=== PATIENT | male | born 1965 | race Caucasian/White ===

== ENCOUNTER 2023-08-22 22:14 | Emergency (ER) | payer OTHER, SELFPAY ==
[2023-08-22 22:24] VITALS: BP 104/62
--- NOTE | 2023-08-23 00:47 | ED.GENMED ---
History of Present Illness
<HOLLY Ball - Last Filed: 08/23/23 03:03>
General
Chief Complaint: Back Pain
Source: patient
Exam Limitations: none
Time Seen by Provider: 08/23/23 00:24
Nursing documentation reviewed up to this point in time: agreed with
Travel History
Have you had any contact with someone who has COVID-19?: No
Do you have any symptoms of coronavirus? Fever > 100 degrees, chills, cough, shortness of breath, sore throat, loss of taste or smell, muscle aches, or headache?: No
History of Present Illness
History of Present Illness:
patient is a 57 y/o male with chronic back pain presenting for worsening back pain x 1 week. Patient has a history chronic lower back pain that is managed by his pain management doctor. Patient has a history of multiple spinal surgeries due to back
pain. Patient admits that his lower back pain normally consists of radiculopathy that extends down the right leg predominantly. Patient states he has chronic tingling down his right lower extremity as well. Patient admits that he has been receiving
epidural injections for his pain with his last injection being July 13. Patient admits the epidurals have stopped helping his pain and he is now taking baclofen. Patient has an appointment with pain management tomorrow. Patient admits to a
fall 1 week ago after rolling his ankle and states he 'tensed up' which has caused his back pain to worsen and he can 'feel his disc bulging.' patient is in 9/10 pain. Patient denies alcohol or smoking in the last 48 hrs.
Past History
<HOLLY Ball - Last Filed: 08/23/23 03:03>
Past History
ED Past Medical History: Other (PNeumonia with sepsis) and Other (Morbid obesity, Sleep apnea, previous L1 vertebral surgery, previous cervical laminectomy); Negative Asthma, HTN, Hypercholesterolemia or NIDDM
ED Past Surgical History: Orthopedic
Social History
Tobacco: Non-smoker
Alcohol: None
Drug: None
Personal: Single
Living: alone
Employment: Employed
Family History
Family History: Other (Noncontributory)
Review of Systems
<HOLLY Ball - Last Filed: 08/23/23 03:03>
Review of Systems
Constitutional: Reports no symptoms
EENT: Reports no symptoms
Respiratory: Reports no symptoms
Cardiac: Reports no symptoms
ABD/GI: Reports no symptoms
: Reports no symptoms
Musculoskeletal: Reports muscle pain, muscle stiffness, neck pain and back pain
Skin: Reports no symptoms
Neurological: Reports weakness and numbness
Endocrine: Reports no symptoms
Hematologic/Lymphatic: Reports no symptoms
Psychiatric: Reports no symptoms
Phy Exam
<HOLLY Ball - Last Filed: 08/23/23 03:03>
Physical Exam
Physical Exam:
pain to palpation of lumbar spine
Neurological Exam
Neurological Exam: sensory deficit (right lower leg )
Musculoskeletal Exam
Musculoskeletal Exam: neck pain, back pain and back tenderness
Course
<HOLLY Ball - Last Filed: 08/23/23 03:03>
Orders/Labs/Results
Orders:
Orders
08/23/23 00:50
Urinalysis Reflex To Culture Urgent
Date Specimen was Collected: 08/23/23
Time Specimen was Collected: 00:48
08/23/23 01:06
Tramadol HCl [Ultram] 50 mg PO NOW STA
Vital Signs
Initial and Last Documented VS:
Initial Vital Signs
Temp Pulse Resp BP Pulse Ox
98.9 F 70 18 104/62 93
08/22/23 22:24 08/22/23 22:24 08/22/23 22:24 08/22/23 22:24 08/22/23 22:24
Last Documented Vital Signs
Temp Pulse Resp BP Pulse Ox
98.9 F 76 20 104/62 98
08/22/23 22:24 08/23/23 01:15 08/23/23 01:15 08/22/23 22:24 08/23/23 01:15
<Anup Fitzgerald DO - Last Filed: 08/23/23 01:20>
Orders/Labs/Results
Orders:
Orders
08/23/23 00:50
Urinalysis Reflex To Culture Urgent
Date Specimen was Collected: 08/23/23
Time Specimen was Collected: 00:48
08/23/23 01:06
Tramadol HCl [Ultram] 50 mg PO NOW STA
Vital Signs
Initial and Last Documented VS:
Initial Vital Signs
Temp Pulse Resp BP Pulse Ox
98.9 F 70 18 104/62 93
08/22/23 22:24 08/22/23 22:24 08/22/23 22:24 08/22/23 22:24 08/22/23 22:24
Last Documented Vital Signs
Temp Pulse Resp BP Pulse Ox
98.9 F 76 20 104/62 98
08/22/23 22:24 08/23/23 01:15 08/23/23 01:15 08/22/23 22:24 08/23/23 01:15
<HOLLY Ball - Last Filed: 08/23/23 03:03>
MDM/Problems Addressed
Differential Diagnosis Includes:
sciatica
disc herniation
spinal stenosis
MDM/Problems Addressed:
back pain
<HOLYL Ball - Last Filed: 08/23/23 03:03>
*Critical Care Note
Total Time (30-74mins, 75-104mins- exclusive of procedures): Not Applicable
ED Attending Note
Bensonlt;HOLLY Ball - Last Filed: 08/23/23 03:03>
-
Portions of this chart may have been created with voice recognition software.� Occasional wrong word or��sound alike� substitutions may have occurred due to the inherent limitations of voice recognition software.
<Anup Fitzgerald DO - Last Filed: 08/23/23 01:20>
ED Attending Note
Patient seen and examined by attending physician: Yes
I performed the substantive portion of visit, reviewed & personally made and approve the management plan that is documented in note by myself or BIB.: Yes
ED Attending Note:
I have seen and evaluated the patient with a [id number] encounter. I have spoken to the advance practicer provider and involved in the medical history, the physical exam, medical decision making.
Evaluation and management service: agree unless noted differently below.
Results interpretation: agree unless noted differently below.
Focused HPI: 57-year-old male presenting with acute on chronic back pain. Patient had a recent fall and states this aggravated his back. Patient has longstanding history of back pain. Patient acknowledges that he does not like narcotics based on
the side effects. He follows up with pain management next has appointment tomorrow. Patient states he has been unable to sleep. He states there is mild tingling going down both legs but that is normal. He denies trouble urinating or loss of
bowel movements.
Physical exam: Mildly uncomfortable. No midline tenderness. Ambulating without difficulty. Sensation grossly intact to both legs. Distal pulses intact.
Medical Decision Making: Will give short prescription for tramadol and metaxalone. Patient feels comfortable with this plan. He will follow-up with his pain management tomorrow.
Discharge Plan
Departure
Patient Disposition: Home (Routine Discharge)
Date of Disposition: 08/23/23
Time of Disposition: 01:07
Patient with high blood pressure during this ER visit?: No
Discharge Problem:
Back pain
Instructions: Low Back Pain (DC)
Prescriptions:
New
tramadol 50 mg tablet
50 mg PO BID PRN (Reason: pain) Qty: 14 0RF
metaxalone 800 mg tablet
800 mg PO TID PRN (Reason: muscle pain) Qty: 14 0RF
No Action
baclofen 5 mg Tablet
5 mg PO DAILY
Referrals:
Victor M Peters MD [Family Provider] -
Activity Restrictions/Additional Instructions:
Please return for any worsening symptoms.
You may return at any time if you have further concerns.
Please keep your pain management appointment tomorrow.
Thank you for choosing [facility].
Interventions
Interventions:
*Risk Screen - Suicide Last Done: 08/22/23 22:24
*General Assessment Last Done: 08/23/23 00:55
*Neglect/Abuse Screening Last Done: 08/22/23 22:24
ED- Fall Risk Assessment Last Done: 08/23/23 00:55
*ED COVID-19 Vaccine History Last Done: 08/23/23 00:55
*Nursing Disposition Last Done: 08/23/23 01:34
ED-Musculoskeletal Assessment Last Done: 08/23/23 00:55
Discharge Date and Time
Discharge Date/Time: 08/23/23 01:35
[2023-08-23 01:01] LABS: Urine Albumin Negative (Neg - Trace); Urine Bilirubin Negative (Negative); Urine Character Clear (Clear); Urine Color Yellow; Urine Glucose Negative (Negative); Urine Ketone Negative (Negative); Urine Leukocyte Negative (Negative); Urine Nitrite Negative (Negative); Urine Occult Blood Negative (Negative); Urine Urobilinogen Negative (Neg - 1+)
[2023-08-23] MEDS: ULTRAM 50 MG PO (01:13)
== END 2023-08-23 01:35 | disposition home or self-care (01) ==
LOC: EMR 22:14
PROVIDERS: EMERGENCY PHYSICIAN Student in an Organized Health Care Education/Training Program; FAMILY PHYSICIAN Family Medicine
DX: M54.9 Dorsalgia, unspecified (principal); G89.29 Other chronic pain; E66.01 Morbid (severe) obesity due to excess calories; G47.30 Sleep apnea, unspecified; I10 Essential (primary) hypertension
CPT/HCPCS: 99282; 81003

== ENCOUNTER 2024-01-03 20:18 | Emergency (ER) | payer SELFPAY ==
[2024-01-03 20:19] VITALS: BP 154/91
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
[2024-01-03] MEDS: DELTASONE 40 MG PO (22:39)
== END 2024-01-03 22:55 | disposition home or self-care (01) ==
LOC: EMR 20:18
PROVIDERS: EMERGENCY PHYSICIAN Emergency Medicine; FAMILY PHYSICIAN Family Medicine
DX: S13.4XXA Sprain of ligaments of cervical spine, initial encounter (principal); S33.5XXA Sprain of ligaments of lumbar spine, initial encounter; S60.221A Contusion of right hand, initial encounter; V43.52XA Car driver injured in collision with other type car in traffic accident, initial encounter; Y92.410 Unspecified street and highway as the place of occurrence of the external cause; E66.01 Morbid (severe) obesity due to excess calories; G47.30 Sleep apnea, unspecified
CPT/HCPCS: 99284; 72072; 72110; 72125; 73130

== ENCOUNTER 2024-03-16 15:04 | Emergency (ER) | payer OTHER, SELFPAY ==
[2024-03-16 15:17] VITALS: BP 148/88
--- NOTE | 2024-03-16 16:07 | ED.MUSCINJ ---
HPI-Injury
General
Chief Complaint: Musculo-Skeletal Complaint
Source: patient
Exam Limitations: none
Time Seen by Provider: 03/16/24 16:03
Nursing documentation reviewed up to this point in time: agreed with
History of Present Illness-Injury
Initial Injury comments:
58-year-old male was raking leaves at 1030 this morning when he tripped over the cord and fell onto his outstretched right hand. He presents with pain in the wrist and fourth and fifth metacarpals
Past History
Past History
ED Past Medical History: Other (Pneumonia with sepsis) and Other (Morbid obesity, Sleep apnea, previous L1 vertebral surgery, previous cervical laminectomy); Negative Asthma, HTN, Hypercholesterolemia or NIDDM
ED Past Surgical History: Orthopedic
Social History
Tobacco: Non-smoker
Alcohol: None
Drug: None
Personal: Single
Living: alone
Employment: Employed
Family History
Family History: Other (Noncontributory)
Review of Systems
Review of Systems
Allergies reviewed?: Yes
All Other Systems: ROS reviewed and negative except as documented in HPI and ROS
Musculoskeletal: Reports other (Pain right hand and wrist. 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
Phy Exam
Physical Exam
Physical Exam:
PHYSICAL EXAMINATION:
General: no apparent distress, not acutely ill
Neuro: alert and oriented.
Psychiatric: well kept. interactive and cooperative
Musculoskeletal: Tender to palpation over 4th and 5th metacarpals and carpal bones. No significant swelling. Distal N/V intact. Moves all fingers well. Moves with ease
Skin: Warm, pink.
Injury Course
Orders/Labs/Results
Orders:
Orders
03/16/24 15:19
Wrist, Right 3 Views [CR Wrist - Right Min 3 Views] Urgent
Comment:
Reason For Exam: injury
03/16/24 16:07
Harjinder Wrap Right-Treatment ONCE
03/16/24 16:33
Ibuprofen [Motrin] 600 mg PO NOW STA
03/16/24 16:59
Sling Right-Treatment ONCE
MDM/Problems Addressed
Differential Diagnosis Includes:
Sprain versus fracture of hand/wrist
MDM/Problems Addressed:
58-year-old male was raking leaves at 1030 this morning when he tripped over the cord and fell onto his outstretched right hand. He presents with pain in the wrist and fourth and fifth metacarpals
X-ray right wrist including full visualization of the third fourth and fifth metacarpals reveals no fracture.
Offered a universal splint but patient preferred to have an Harjinder wrap.
Harjinder wrap applied by this examiner. Cold compress applied. Pt requestedsling which was applied. Distal n/v intact afterwards
*Critical Care Note
Total Time (30-74mins, 75-104mins- exclusive of procedures): Not Applicable
ED Attending Note
-
Portions of this chart may have been created with voice recognition software.� Occasional wrong word or��sound alike� substitutions may have occurred due to the inherent limitations of voice recognition software.
Discharge Plan
Departure
Patient Disposition: Home (Routine Discharge)
Date of Disposition: 03/16/24
Time of Disposition: 16:11
Patient with high blood pressure during this ER visit?: No
Condition: Good
Discharge Problem:
Soft tissue injury of right hand, Soft tissue injury of right wrist
Instructions: Sprain (DC), Using Cold for Pain
Prescriptions:
No Action
baclofen 5 mg Tablet
5 mg PO DAILY
tramadol 50 mg tablet
50 mg PO BID PRN (Reason: pain) Qty: 14 0RF
metaxalone 800 mg tablet
800 mg PO TID PRN (Reason: muscle pain) Qty: 14 0RF
prednisone 10 mg Tablet
See Rx Instructions .ROUTE .COMPLEX Qty: 30 0RF
Rx Instructions:
Take By Mouth:
40 mg daily x3 days, 30 mg daily x3 days,
20 mg daily x3 days, 10 mg daily x3 days.
Referrals:
Your, Orthopedic doctor [Other] - As needed
Activity Restrictions/Additional Instructions:
As we discussed, I see nothing broken on your x-ray. Wear the Harjinder wrap as needed for comfort, support, swelling.
Tylenol or ibuprofen as needed for pain
See your orthopedic doctor if the areas are not a lot better in 1 week or not 100% better in 3 weeks.
Interventions
Interventions:
*Risk Screen - Suicide Last Done: 03/16/24 16:28
*Neglect/Abuse Screening Last Done: 03/16/24 16:28
*Nursing Disposition Last Done: 03/16/24 16:50
ED-Musculoskeletal Assessment Last Done: 03/16/24 16:28
Discharge Date and Time
Discharge Date/Time: 03/16/24 16:51
Print Language: AMHARIC
[2024-03-16 16:37] VITALS: BP 137/81
[2024-03-16] MEDS: MOTRIN 600 MG PO (16:43)
[2024-03-16 16:50] VITALS: BP 137/81
== END 2024-03-16 16:51 | disposition home or self-care (01) ==
LOC: EMR 15:04
PROVIDERS: EMERGENCY PHYSICIAN Emergency Medicine; FAMILY PHYSICIAN Family Medicine
DX: S69.91XA Unspecified injury of right wrist, hand and finger(s), initial encounter (principal); W01.0XXA Fall on same level from slipping, tripping and stumbling without subsequent striking against object, initial encounter; E66.01 Morbid (severe) obesity due to excess calories; G47.30 Sleep apnea, unspecified
CPT/HCPCS: 99283; 73110

== ENCOUNTER 2025-02-27 07:47 | Emergency (ER) | payer OTHER, SELFPAY ==
[2025-02-27 08:01] VITALS: BP 135/82
--- NOTE | 2025-02-27 08:27 | ED.GENMED ---
History of Present Illness
General
Chief Complaint: Cold/Flu/URI Symptoms
Source: patient
Time Seen by Provider: 02/27/25 08:15
History of Present Illness
History of Present Illness:
59-year-old male with past medical history of sleep apnea, BPH and diverticulosis presenting to the emergency department for evaluation of upper respiratory symptoms that been ongoing for the last 2 to 3 days, patient concerned for possible
pneumonia noting that when he gets upper respiratory infections he has had to be admitted multiple times in the past for IV antibiotics and respiratory difficulties. Patient notes that he does have a nebulizer machine at home but states it does not
work as well as the medication that we provided doing here so he did not use his nebulizer. He is denying any fevers although noting that he does feel flushed and hot at times. No known sick contacts, recent travel or recent antibiotics.
Currently denying any chest pain, palpitations, diaphoresis or exertional dyspnea, lower extremity edema, abdominal pain or GI symptoms.
Past History
Past History
ED Past Medical History: Other (Pneumonia with sepsis) and Other (Morbid obesity, Sleep apnea, previous L1 vertebral surgery, previous cervical laminectomy); Negative Asthma, HTN, Hypercholesterolemia or NIDDM
ED Past Surgical History: Orthopedic
Social History
Tobacco: Non-smoker
Alcohol: None
Drug: None
Personal:
Living: with family
Employment: Employed
Family History
Family History: Other (Noncontributory)
Review of Systems
Review of Systems
All Other Systems: ROS reviewed and negative except as documented in HPI and ROS
Phy Exam
Physical Exam
Physical Exam:
GENERAL: Alert , in no apparent distress, Overweight
HEAD: Normocephalic atraumatic
EYE: conjunctiva clear
NECK: Supple, no significant adenopathy.
ENT: o/p clr, mmm. No tonsillar edema or exudates, TMs clear and pearly bilateral
CARDIAC: Regular rate and rhythm
LUNGS: Clear breath sounds bilaterally, no acute respiratory distress, no wheezes/rales/rhonchi
NEUROLOGICAL: Alert and oriented
SKIN: Warm and dry, skin intact.
MUSCULOSKELETAL: well perfused.
PSYCH: Normal and appropriate interaction.
Scores
Heart Failure Risk
Heart Failure Risk Score: Not Applicable
Heart Score for Chest Pain Patients
STEMI patient?: Not applicable
Withdrawal Assessment of Alcohol
Withdrawal Assessment Completed?: Not applicable
Course
Orders/Labs/Results
Orders:
Orders
02/27/25 08:27
Electrocardiogram (*1) Urgent
Reason for Study: Shortness of Breath
EKG- Treatment ONCE
Ipratropium/Albuterol Sulfate [Duoneb] 3 ml INH R NOW ONE
CR Chest - 2 Views Urgent
Comment:
Reason For Exam: SOB
02/27/25 08:42
Complete Blood Count/With Diff Urgent
Comprehensive Metabolic Panel Urgent
NT-proBNP Urgent
Troponin I Urgent
02/27/25 08:54
COVID-19 Antigen Urgent
Source: Nasal Swab
02/27/25 10:27
CefTRIAXone [Rocephin] 1,000 mg IV NOW STA
Doxycycline [Vibramycin] 100 mg PO NOW STA
Abnormal Lab Results
02/27/25
08:42
MCHC 32.2 L g/dL
(33.0-37.0)
Abs Immat Gran (auto) 0.1 H 10^3/uL
(0-0.05)
Absolute Monos (auto) 0.8 H 10^3/uL
(0.1-0.6)
Immature Gran % 1.0 H %
(0-0.5)
Lymphocytes % 17.5 L %
(20.5-51.1)
Glucose 100 H mg/dl
(70-99)
02/27/25 08:42
02/27/25 08:42
Vital Signs
Initial and Last Documented VS:
Initial Vital Signs
Temp Pulse Resp BP Pulse Ox
98.1 F 73 18 135/82 94
02/27/25 08:01 02/27/25 08:01 02/27/25 08:01 02/27/25 08:01 02/27/25 08:01
Last Documented Vital Signs
Temp Pulse Resp BP Pulse Ox
98.1 F 65 26 135/82 96
02/27/25 08:01 02/27/25 10:00 02/27/25 10:00 02/27/25 08:01 02/27/25 10:00
MDM/Problems Addressed
Differential Diagnosis Includes:
Viral syndrome
COVID/flu
Pneumonia
Otitis media
Sinusitis
Pharyngitis
Strep throat
Undiagnosed COPD/asthma
MDM/Problems Addressed:
59-year-old male presenting to the ER for evaluation of cold like symptoms ongoing for the last few days, patient concern for possible development of pneumonia given past history. Currently hemodynamically stable and in no acute distress. Patient
is requesting a breathing event although no noted wheezing on exam. Will check labs, EKG and cardiac enzymes although my suspicion for any cardiac etiology is very low. Chest x-ray ordered. Disposition pending.
Chronic conditions affecting care: Other (Sleep apnea)
*Radiology
Radiology exam reviewed: preliminary read by ED provider (No acute infiltrates)
*Pulse Oximetry
SaO2: 94
Oxygen Mode of Delivery: Room air
Patient hypoxic: no
*EKG
Heart Rate: 64
Rate: normal
Rhythm: sinus
Como: normal axis
Ischemia: no ischemia
*Blood Bank Credit Clerk Interpretation
Rate: normal
Heart Rate: 71
Rhythm: sinus
*Critical Care Note
Total Time (30-74mins, 75-104mins- exclusive of procedures): Not Applicable
Data Reviewed
Review of Other/Old Records Reveals: Labs and Records
Patient Management
Escalation/DeEscalation of care consider admission/obs:
Patient's workup reassuring, no leukocytosis, no leftward shift, chemistry unremarkable, EKG nonischemic with normal troponin. COVID test negative. Patient's chest x-ray shows no signs of pneumonia. I reviewed these findings with patient.
Patient stating that given his history he would like to receive a dose of IV antibiotics. I did discuss with I felt his symptoms were more likely viral and that I would be happy to give him a oral prescription for antibiotics to take if patient was
still symptomatic over the next couple of days however patient was not happy with this plan. I discussed with the patient the potential side effects of IV and oral antibiotics and that if we were to give him the IV antibiotic here that he would
need to take the oral antibiotic but that I still suspect that his symptoms were more likely viral. Patient expressed understanding. I also reviewed with the patient the possibility of COPD as a diagnosis given the radiologist concern on his chest
x-ray and encouraged him to follow-up with his family doctor for further testing. I also encouraged the patient to use his nebulizer machine at home for shortness of breath as needed and the patient continued to state that is machine does not work
for him. At this time I do think it is reasonable for patient to be discharged home, aware of return precautions to the ER.
ED Attending Note
-
Portions of this chart may have been created with voice recognition software.� Occasional wrong word or��sound alike� substitutions may have occurred due to the inherent limitations of voice recognition software.
Discharge Plan
Departure
Patient Disposition: Home (Routine Discharge)
Date of Disposition: 02/27/25
Time of Disposition: 10:28
Patient with high blood pressure during this ER visit?: No
Discharge Problem:
Upper respiratory infection
Instructions: Cough in adults - ED (DC)
Prescriptions:
New
cefdinir 300 mg capsule
300 mg PO BID 10 Days Qty: 20 0RF
prednisone 10 mg Tablet
See Rx Instructions .ROUTE .COMPLEX Qty: 30 0RF
Rx Instructions:
Take By Mouth:
40 mg daily x3 days, 30 mg daily x3 days,
20 mg daily x3 days, 10 mg daily x3 days.
doxycycline hyclate 100 mg tablet
100 mg PO BID 10 Days Qty: 20 0RF
No Action
baclofen 5 mg Tablet
5 mg PO DAILY
tramadol 50 mg tablet
50 mg PO BID PRN (Reason: pain) Qty: 14 0RF
metaxalone 800 mg tablet
800 mg PO TID PRN (Reason: muscle pain) Qty: 14 0RF
prednisone 10 mg Tablet
See Rx Instructions .ROUTE .COMPLEX Qty: 30 0RF
Rx Instructions:
Take By Mouth:
40 mg daily x3 days, 30 mg daily x3 days,
20 mg daily x3 days, 10 mg daily x3 days.
Referrals:
Victor M Peters MD [Family Provider, Family Practice]
Interventions
Interventions:
*Risk Screen - Suicide Last Done: 02/27/25 08:01
*General Assessment Last Done: 02/27/25 08:01
*Neglect/Abuse Screening Last Done: 02/27/25 08:01
ED- Pulmonary Assessment Last Done: 02/27/25 09:15
Discharge Date and Time
Print Language: SPANISH
[2025-02-27 08:44] VITALS: BMI 46.7
[2025-02-27] MEDS: DUONEB 3 ML INH (08:44)
[2025-02-27 08:51] LABS: Hematocrit 45.9 % (39.0-52.0); Hemoglobin 14.8 g/dL (13.0-18.0); Mean Corp Hgb Conc. 32.2 g/dL (33.0-37.0); Mean Corpuscular Volume 85.8 fL (80.0-94.0); Nucleated Red Blood Cells % 0 % (-); Platelet Count 188 10^3/uL (130-400); Red Cell Dist. Width 13.9 % (11.5-14.5)
[2025-02-27 09:14] LABS: Troponin I < 0.012 ng/ml
[2025-02-27 09:27] LABS: ALT (SGPT) 42 U/L (0-50); AST (SGOT) 32 U/L (17-59); Albumin 3.8 g/dl (3.5-5.0); Alkaline Phosphatase 71 U/L (38-126); Blood Urea Nitrogen 18 mg/dl (9-20); Calcium 8.6 mg/dl (8.4-10.2); Carbon Dioxide 28 mmol/L (22-30); Chloride 107 mmol/L (98-107); Estimated Creatinine Clearance 100 ml/min; Glucose 100 mg/dl (70-99); Potassium 4.2 mmol/L (3.5-5.1); Sodium 137 mmol/L (135-145); Total Protein 6.7 g/dl (6.3-8.2); eGFR > 60.00
[2025-02-27 09:44] LABS: COVID-19 Antigen Negative (Negative)
[2025-02-27] MEDS: ROCEPHIN 1000 MG IV (11:13)
[2025-02-27] MEDS: VIBRAMYCIN 100 MG PO (11:13)
[2025-02-27 11:28] VITALS: BP 134/66
== END 2025-02-27 11:29 | disposition home or self-care (01) ==
LOC: EMR 07:47
PROVIDERS: Physician Assistant Medical; EMERGENCY PHYSICIAN Emergency Medicine; FAMILY PHYSICIAN Family Medicine
DX: J06.9 Acute upper respiratory infection, unspecified (principal); G47.30 Sleep apnea, unspecified; E66.01 Morbid (severe) obesity due to excess calories; Z68.42 Body mass index [BMI] 45.0-49.9, adult; N40.0 Benign prostatic hyperplasia without lower urinary tract symptoms; Z87.01 Personal history of pneumonia (recurrent)
CPT/HCPCS: 99284; 96374; 94640; 71046; 80053; 83880; 84484; 85025; 87811; 93005